=== PATIENT | female | born 2000 | race Asian ===

== ENCOUNTER 2022-06-11 13:15 | Inpatient (IN) ==
--- NOTE | 2022-06-11 14:02 | Emergency Department Note ---
Impression & Plan Suicidal ideation, COVID-19 ED Provider Note NAME: ROSIE CRUM AGE: 21 SEX: F : 2000 ARRIVES VIA: Walk-In INFORMANT: Patient ED PROVIDER(S): Trevor Escobedo DO CHIEF COMPLAINT: Suicide attempt HPI: Patient is a 19-year-old female who presents to the ER sent in by [facility]. Per [facility] on Wednesday attempted to hang herself and was talking about overdosing or cutting herself. Patient notes that she went to the bar had 2 drinks a night and did time not in the closet with a rope and with the intention of killing herself. She denies any auditory visual hallucinations. She notes that her boyfriend did stop her and she thought that he was going to stop her. Denies any belly pain nausea vomiting or diarrhea. She feels hopeless here and does not feel like she has any support as she is from [facility]. 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 She is depressed that she is not going to use this after she gets out. She feels like she is letting her family down. PAST MEDICAL HISTORY:See Below PAST SURGICAL HISTORY:See Below FAMILY HISTORY:See Below SOCIAL HISTORY:See Below HOME MEDICATIONS:See Below ALLERGIES:See Below VITALS:See Below PHYSICAL EXAMINATION: GENERAL: Sitting up in bed, alert, well appearing, well nourished, no distress, non-toxic EYE EXAM: normal conjunctiva. OROPHARYNX: no exudate, no erythema, lips, buccal mucosa, and tongue normal and mucous membranes are moist NECK: supple, no nuchal rigidity, no adenopathy, non-tender LUNGS: Clear to auscultation. Normal chest wall mechanics HEART: no murmurs, S1 normal and S2 normal ABDOMEN: abdomen soft, non-tender, normo-active bowel sounds, no masses, no rebound or guarding. BACK: Back is symmetrical on inspection and there is no deformity, no midline tenderness, no CVA tenderness. SKIN: no rashes and no bruising UPPER EXTREMITIES: upper extremities are grossly normal. LOWER EXTREMITIES: No pitting edema. NEURO EXAM: Normal sensorium, cranial nerves II-XII grossly intact, normal speech, no gross weakness of arms, no gross weakness of legs. PSYCH: Admits to trying to hang herself on Wednesday. Currently denies any suicidal homicidal ideations. No auditory visual hallucinations. MEDICAL DECISION MAKING: Patient is a 21-year-old female who presents the ER for decide attempt on Wednesday. IV was established blood was obtained. Labs show no significant le ukocytosis or anemia. BMP with a chloride of 109. LFTs bilirubin was unremarkable. TSH was normal. UA was clean. was negative. Tox was negative. Alcohol was positive. Patient is a high risk as she was tying a rope in her closet to kill her self and has thought of multiple other ways to kill her self on Wednesday. She was agreeable to come in will be admitted to the hospitalist service and will be evaluated by psychiatry due to the COVID- positive. External records were reviewed from the report from With memory care program director. Did discuss with herminia hilton hospitalist in regards to admission and further evaluation. Triage Nursing notes reviewed. Limited review of prior medical records performed Vital Signs: reviewed and remarkable for tachy Differential diagnosis: Mood disorder, infection, hypoglycemia, electrolyte abnormalities, cardiac sources, intracerebral event, toxicologic, trauma, neurologic, as well as other pathologies. ER treatment provided: See below Diagnostics interpreted by me include EKG and cardiac monitoring as listed below: -Laboratory studies:Interpreted by me as stated above in MDM and shown below. Imaging studies: Xrays: As interpreted by me:none CTs show: none Consultation(s): Discussed with care managers as described above. Discussed with her psychiatric memory care program director who evaluate the patient as above. Discussed with herminia medeiros from the hospital service for admission and further work- up. Procedures:none Critical Care: None Past Med/Surg History Social History Smoking Status: Current every day smoker Do You Dip or Chew Tobacco: No; Tobacco Cessation Education Requested by Patient: No Hx Alcohol Use: Yes Alcohol type: beer and hard liquor Hx Substance Use: No Preferred Language: Burkin[place] Required: No Beliefs That Will Affect Care: None Current Living Situation: Other Current Living Situation Comment: roommates Other Information That Helps Us Care for You: No Feels Safe at Home: Yes Safety Concerns: Feels Safe At This Time Assistive Devices: Glasses Allergies Allergies Allergy/AdvReac Type Severity Reaction Status Date / Time No Known Drug Allergies Allergy Verified 06/11/22 16:47 Home Meds Home Medications Medication Instructions Recorded Confirmed No Known Home Medications 06/11/22 06/11/22 Results & Data (ED) Vital Signs Vital Signs - 24 hr 06/11/22 13:20 06/11/22 15:21 Temperature 36.7 C Temperature Source Temporal Artery Scan Pulse Rate 112 H Pulse Rate [Apical] 82 Respiratory Rate 18 18 Respiratory Effort / Characteristics Non-Labored Respiratory Depth Normal Blood Pressure 120/84 Blood Pressure [Right Arm] 117/83 Blood Pressure Mean 96 Blood Pressure Mean [Right Arm] 94 Pulse Oximetry 97 100 Oxygen Delivery Method Room Air Room Air Sepsis Recent Fever Within 48 Hours No Sepsis New/Unexplained Change in Mental Status No Sepsis Action Taken by Nursing No Action Required Laboratory Data 06/11/22 14:17 06/11/22 14:17 Lab Results 06/11/22 06/11/22 06/11/22 Range/Units 14:17 14:17 14:17 WBC 7.91 (4.8-10.8) K/ul RBC 5.26 (4.20-5.40) M/uL Hgb 12.9 (12.0-16.0) g/dl Hct 40.3 (37.0-47.0) % MCV 76.6 L (80.0-100.0) fL MCH 24.5 L (25.0-34.0) pg MCHC 32.0 (32.0-36.0) g/dL RDW Std Deviation 40.8 (36.4-46.3) fL RDW Coeff of Kraan 14.6 H (11.5-14.5) % Plt Count 390 (130-400) K/uL MPV 10.0 (9.4-12.4) fL Immature Gran % (Auto) 0.5 % Neut % (Auto) 62.1 % Lymph % (Auto) 30.5 % [place] % (Auto) 4.8 % Eos % (Auto) 1.3 % Baso % (Auto) 0.8 % Neut # (Auto) 4.92 (1.40-6.50) K/uL Lymph # (Auto) 2.41 (1.2-3.4) K/uL [place] # (Auto) 0.38 (0.11-0.59) K/uL Eos # (Auto) 0.10 (0-0.50) K/uL Baso # (Auto) 0.06 (0-0.2) K/uL Immature Gran # (Auto) 0.04 (0.01-0.20) K/uL Sodium 139 (136-145) mmol/L Potassium 4.1 (3.5-5.1) mmol/L Chloride 109 H (98-107) mmol/L Carbon Dioxide 23 (21-32) mmol/L Anion Gap 7 (3-11) BUN 15 (6-23) mg/dl Creatinine 0.87 (0.6-1.2) mg/dl Est Cr Clr Drug Dosing 125.3 ml/min Est GFR ( Amer) 109.6 ml/min Est GFR (Non-Af Amer) 94.6 ml/min BUN/Creatinine Ratio 17.2 (10-20) Glucose 101 H (70-99(Fasting)) mg/dl Calcium 9.7 (8.5-10.1) mg/dl Total Bilirubin 0.4 (0.2-1.0) mg/dl AST 16 (13-39) U/L ALT 17 (7-52) U/L Alkaline Phosphatase 92 (34-104) U/L Total Protein 7.5 (6.0-8.3) gm/dl Albumin 4.5 (3.4-5.0) gm/dl Globulin 3.0 (2.5-4.0) gm/dl Albumin/Globulin Ratio 1.5 (0.9-2) TSH 2.646 (0.300-4.500) uIu/ml Urine Color Urine Appearance (Clear) Urine pH (4.5-7.5) Ur Specific [place] (1.000-1.030) Urine Protein (Negative) Urine Glucose (UA) (Negative) Urine Ketones (Negative) Urine Blood (Negative) Urine Nitrite (Negative) Urine Bilirubin (Negative) Urine Urobilinogen (Negative) Ur Leukocyte Esterase (Negative) Urine Test (Negative) Salicylates (3.0-30) mg/dl Urine Opiates Screen (Neg) Ur Methadone, Qual (Neg) Acetaminophen (10-30) ug/ml Urine Barbiturates (Neg) Ur Phencyclidine (PCP) (Neg) U Amphetamin/Meth Scrn (Neg) MDMA (Ecstasy) Screen (Neg) U Benzodiazepines Scrn (Neg) Ur Cocaine Metabolite (Neg) U Marijuana (THC) Screen (Neg) Ethyl Alcohol mg/dL (<10.0) mg/dl SARS-CoV-2, RNA, NAAT (NEGATIVE) 06/11/22 06/11/22 06/11/22 Range/Units 14:17 14:17 14:20 WBC (4.8-10.8) K/ul RBC (4.20-5.40) M/uL Hgb (12.0-16.0) g/dl Hct (37.0-47.0) % MCV (80.0-100.0) fL MCH (25.0-34.0) pg MCHC (32.0-36.0) g/dL RDW Std Deviation (36.4-46.3) fL RDW Coeff of Karan (11.5-14.5) % Plt Count (130-400) K/uL MPV (9.4-12.4) fL Immature Gran % (Auto) % Neut % (Auto) % Lymph % (Auto) % [place] % (Auto) % Eos % (Auto) % Baso % (Auto) % Neut # (Auto) (1.40-6.50) K/uL Lymph # (Auto) (1.2-3.4) K/uL [place] # (Auto) (0.11-0.59) K/uL Eos # (Auto) (0-0.50) K/uL Baso # (Auto) (0-0.2) K/uL Immature Gran # (Auto) (0.01-0.20) K/uL Sodium (136-145) mmol/L Potassium (3.5-5.1) mmol/L Chloride (98-107) mmol/L Carbon Dioxide (21-32) mmol/L Anion Gap (3-11) BUN (6-23) mg/dl Creatinine (0.6-1.2) mg/dl Est Cr Clr Drug Dosing ml/min Est GFR ( Amer) ml/min Est GFR (Non-Af Amer) ml/min BUN/Creatinine Ratio (10-20) Glucose (70-99(Fasting)) mg/dl Calcium (8.5-10.1) mg/dl Total Bilirubin (0.2-1.0) mg/dl AST (13-39) U/L ALT (7-52) U/L Alkaline Phosphatase (34-104) U/L Total Protein (6.0-8.3) gm/dl Albumin (3.4-5.0) gm/dl Globulin (2.5-4.0) gm/dl Albumin/Globulin Ratio (0.9-2) TSH (0.300-4.500) uIu/ml Urine Color Urine Appearance (Clear) Urine pH (4.5-7.5) Ur Specific [place] (1.000-1.030) Urine Protein (Negative) Urine Glucose (UA) (Negative) Urine Ketones (Negative) Urine Blood (Negative) Urine Nitrite (Negative) Urine Bilirubin (Negative) Urine Urobilinogen (Negative) Ur Leukocyte Esterase (Negative) Urine Test (Negative) Salicylates < 3.0 L (3.0-30) mg/dl Urine Opiates Screen (Neg) Ur Methadone, Qual (Neg) Acetaminophen < 3 L (10-30) ug/ml Urine Barbiturates (Neg) Ur Phencyclidine (PCP) (Neg) U Amphetamin/Meth Scrn (Neg) MDMA (Ecstasy) Screen (Neg) U Benzodiazepines Scrn (Neg) Ur Cocaine Metabolite (Neg) U Marijuana (THC) Screen (Neg) Ethyl Alcohol mg/dL < 10.0 (<10.0) mg/dl SARS-CoV-2, RNA, NAAT POSITIVE A* (NEGATIVE) 06/11/22 06/11/22 06/11/22 Range/Units 15:25 15:25 15:25 WBC (4.8-10.8) K/ul RBC (4.20-5.40) M/uL Hgb (12.0-16.0) g/dl Hct (37.0-47.0) % MCV (80.0-100.0) fL MCH (25.0-34.0) pg MCHC (32.0-36.0) g/dL RDW Std Deviation (36.4-46.3) fL RDW Coeff of Karan (11.5-14.5) % Plt Count (130-400) K/uL MPV (9.4-12.4) fL Immature Gran % (Auto) % Neut % (Auto) % Lymph % (Auto) % [place] % (Auto) % Eos % (Auto) % Baso % (Auto) % Neut # (Auto) (1.40-6.50) K/uL Lymph # (Auto) (1.2-3.4) K/uL [place] # (Auto) (0.11-0.59) K/uL Eos # (Auto) (0-0.50) K/uL Baso # (Auto) (0-0.2) K/uL Immature Gran # (Auto) (0.01-0.20) K/uL Sodium (136-145) mmol/L Potassium (3.5-5.1) mmol/L Chloride (98-107) mmol/L Carbon Dioxide (21-32) mmol/L Anion Gap (3-11) BUN (6-23) mg/dl Creatinine (0.6-1.2) mg/dl Est Cr Clr Drug Dosing ml/min Est GFR ( Amer) ml/min Est GFR (Non-Af Amer) ml/min BUN/Creatinine Ratio (10-20) Glucose (70-99(Fasting)) mg/dl Calcium (8.5-10.1) mg/dl Total Bilirubin (0.2-1.0) mg/dl AST (13-39) U/L ALT (7-52) U/L Alkaline Phosphatase (34-104) U/L Total Protein (6.0-8.3) gm/dl Albumin (3.4-5.0) gm/dl Globulin (2.5-4.0) gm/dl Albumin/Globulin Ratio (0.9-2) TSH (0.300-4.500) uIu/ml Urine Color Yellow Urine Appearance Clear (Clear) Urine pH 7.5 (4.5-7.5) Ur Specific [place] 1.010 (1.000-1.030) Urine Protein Negative (Negative) Urine Glucose (UA) Negative (Negative) Urine Ketones Negative (Negative) Urine Blood Negative (Negative) Urine Nitrite Negative (Negative) Urine Bilirubin Negative (Negative) Urine Urobilinogen Negative (Negative) Ur Leukocyte Esterase Negative (Negative) Urine Test Negative (Negative) Salicylates (3.0-30) mg/dl Urine Opiates Screen Neg (Neg) Ur Methadone, Qual Neg (Neg) Acetaminophen (10-30) ug/ml Urine Barbiturates Neg (Neg) Ur Phencyclidine (PCP) Neg (Neg) U Amphetamin/Meth Scrn Neg (Neg) MDMA (Ecstasy) Screen Neg (Neg) U Benzodiazepines Scrn Neg (Neg) Ur Cocaine Metabolite Neg (Neg) U Marijuana (THC) Screen Neg (Neg) Ethyl Alcohol mg/dL (<10.0) mg/dl SARS-CoV-2, RNA, NAAT (NEGATIVE) Discharge Plan Visit Data Chief Complaint: Mental Health Evaluation Stated Complaint: MENTAL HEALTH EVAL, REF FROM [facility] ED Provider: Trevor Escobedo Discharge Problem: Suicidal ideation, COVID-19 Patient Disposition: Admitted As Inpatient Discharge Instructions Interventions: ED Discharge Assessment Last Done: 06/11/22 19:38
[2022-06-11 14:32] LABS: Basophils # (auto) 0.06 K/uL (0-0.2); Basophils % (auto) 0.8 %; Eosinophils % (auto) 1.3 %; Hematocrit (blood only) 40.3 % (37.0-47.0); Hemoglobin 12.9 g/dl (12.0-16.0); Immature Granulocytes # (auto) 0.04 K/uL (0.01-0.20); Immature Granulocytes % (auto) 0.5 %; Lymphocytes # (auto) 2.41 K/uL (1.2-3.4); Lymphocytes % (auto) 30.5 %; Mean Corpuscular Hemoglobin 24.5 pg (25.0-34.0); Mean Corpuscular Volume 76.6 fL (80.0-100.0); Monocytes # (auto) 0.38 K/uL (0.11-0.59); Monocytes % (auto) 4.8 %; Neutrophils # (auto) 4.92 K/uL (1.40-6.50); Neutrophils % (auto) 62.1 %; Platelet Count 390 K/uL (130-400); RDW Coefficient of Variation 14.6 % (11.5-14.5); RDW Standard Deviation 40.8 fL (36.4-46.3); Red Blood Count 5.26 M/uL (4.20-5.40); White Blood Count 7.91 K/ul (4.8-10.8)
[2022-06-11 14:53] LABS: Acetaminophen < 3 ug/ml (10-30); Salicylate < 3.0 mg/dl (3.0-30)
[2022-06-11 14:57] LABS: Albumin Globulin Ratio 1.5 (0.9-2); Albumin Level 4.5 gm/dl (3.4-5.0); BUN Creatinine Ratio 17.2 (10-20); Bilirubin,Total 0.4 mg/dl (0.2-1.0); Calcium 9.7 mg/dl (8.5-10.1); Creatinine Clr Calc Pharmacy 125.3 ml/min; Est GFR (African American) 109.6 ml/min; Est GFR (Non-African American) 94.6 ml/min; Potassium 4.1 mmol/L (3.5-5.1); Total Protein 7.5 gm/dl (6.0-8.3)
[2022-06-11 15:45] LABS: Appearance Urine Clear (Clear); Bilirubin Urine Negative (Negative); Blood Urine Negative (Negative); Color Urine Yellow; Glucose Urine UA Negative (Negative); Ketones Urine Negative (Negative); Leukocyte Esterase Urine Negative (Negative); Nitrite Urine Negative (Negative); Protein Urine Negative (Negative); Urobilinogen Urine Negative (Negative); pH Urine 7.5 (4.5-7.5)
[2022-06-11 15:48] LABS: Pregnancy Test, Urine Negative (Negative)
[2022-06-11 16:25] LABS: Amphetamines+Metham, Urine Neg (Neg); Barbiturates, Urine Neg (Neg); Benzodiazepine, Urine Neg (Neg); Cocaine, Urine Neg (Neg); MDMA (Ecstacy), Urine Neg (Neg); Methadone, Urine Neg (Neg); Opiate, Urine Neg (Neg); Phencyclidine, Urine Neg (Neg)
--- NOTE | 2022-06-11 16:35 | History & Physical Report ---
Date of Service June 11, 2022 Assessment & Plan (1) Suicidal ideation: Plan: - Patient with suicidal ideation and attempt - Although intoxicated at the time, still will consider intentional attempt - Suicide precautions/checks, safe tray - 1:1 - Consult psychiatry (2) COVID-19: Plan: - Incidentally tested positive but is asymptomatic - Does not require treatment with antivirals, steroids - Negative pressure isolation Plan Above plan of care d/w Dr. Cifuentes who has also seen and evaluated this patient. Further orders as warranted. History of Present Illness Chief Complaint: suicidal ideation/attempt Primary Care Provider: [facility] Meeta is a 21 yo WF with no pertinent past medical history and takes no medication who presented to the ER today due to attempted suicide which occurred on 06/09. Patient notes that she has been dealing with several "personal issues" and it has been causing her to miss her college classes, her grades are suffering as a result, she feels that she is subsequently letting her parents down and all of this made her overwhelmed and she attempted suicide by wrapping a rope around her neck while intoxicated at her boyfriend's apartment Karen evening. She states that she "never planned on following through with it." She has never attempted suicide prior to this. She discussed with a friend who recommended seeking out counseling. At that recommendation, patient made an appointment with caps today and after she told them of the incident, the police were summoned and she was transported to the ER for evaluation. She denies a history of depression or anxiety in the past and has never taken medication for such. She has never seen a psychiatrist or a counselor. She incidentally tested positive for COVID-19 in the ER. She has been vaccinated but not boosted. She has no known ill contacts. She denies cough, shortness of breath, fever/chills, n/v. Allergies Allergy/AdvReac Type Severity Reaction Status Date / Time No Known Drug Allergies Allergy Verified 06/11/22 16:47 Home Medications Medication Instructions Recorded Confirmed Type No Known Home Medications 06/11/22 06/11/22 History Past Med/Surg History Social History Smoking Status: Current every day smoker Do You Dip or Chew Tobacco: No; Tobacco Cessation Education Requested by Patient: No Hx Alcohol Use: Yes Alcohol type: beer and hard liquor Hx Substance Use: No Preferred Language: Finnish [place] [employer]ger Required: No Beliefs That Will Affect Care: None Current Living Situation: Other Current Living Situation Comment: roommates Other Information That Helps Us Care for You: No Feels Safe at Home: Yes Safety Concerns: Feels Safe At This Time Assistive Devices: Glasses Review of Systems Review of Systems: All systems reviewed and are unremarkable except as noted in HPI and below. Denies fever, chills, fatigue, headache, nasal congestion, cough, chest pain, shortness of breath, palpitations, orthopnea, PND, abdominal pain, n/v/d, constipation, dysuria, hematuria, frequency, back pain, joint pain or swelling, easy bruising or bleeding, skin lesions or rashes. Physical Exam Physical Exam: GENERAL: 21 yo Well-developed, well-nourished F. NAD. EYES: EOMI. PERRLA. Anicteric. HENT: Moist mucous membranes. No scleral icterus. No cervical lymphadenopathy. LUNGS: Clear to auscultation bilaterally. No accessory muscle use. No W/R/R. CARDIOVASCULAR: Regular rate and rhythm. No M/G/R. No JVD. ABDOMEN: Soft, non-tender and non-distended. No palpable masses. Bs normoactive x 4 quad. EXTREMITIES: No edema. Non-tender. Peripheral pulses +2/4. NEUROLOGIC: A&O x3. No focal neurological deficits. CN II-XII grossly intact. PSYCHIATRIC: Cooperative. Appropriate mood and affect. SKIN: Warm, dry, intact. No rashes or lesions. Results & Data Results & Data ([facility]) Vital Signs (Past 12 Hours) Vital Signs Temp Pulse Pulse Resp BP BP Pulse Ox 06/11/22 15:21 82 18 117/83 100 06/11/22 13:20 36.7 C 112 H 18 120/84 97 O2 Del Method 06/11/22 15:21 Room Air 06/11/22 13:20 Room Air Laboratory Results 06/11/22 14:17 06/11/22 14:17 Supervising Physician Co-Signing Physician Notes Patient seen and examined, chart reviewed, case discussed with Renata Norton PA-C and I agree with the assessment and plan as above except as otherwise noted Labs and images reviewed 21-year-old female with no past medical history who presented with depression and suicidal ideation, was pending U evaluation but consistently tested po sitive for COVID and is admitted for medical evaluation of COVID. Reports that she wrapped a rope around her neck while intoxicated because she was feeling down, but did not intend to actually follow through with self-harm. Denies SI/HI at bedside. Lungs are clear. Not short of breath or hypoxic, is not requiring room air. Agree with management above, continue one-to-one. No COVID treatments indicated at this time. PG Care Time/CCT Total # of Minutes Spent Total Time Spent with Patient: Total time spent is greater than 50% in coordination of care (as documented) at patient's floor/unit and/or counseling patient: Coding Level of Care Code 11273 INT INP/OBS CARE 2/55MIN Diagnoses Suicidal ideation R45.851 COVID-19 U07.1
[2022-06-11] MEDS ORDERED: ALUMINUM/MAGNESIUM SUSP 30 ML UDC PO PRN (19:02)
[2022-06-11] MEDS ORDERED: ACETAMINOPHEN 325 MG TAB PO PRN (19:02)
[2022-06-11] MEDS ORDERED: MAGNESIUM HYDROXIDE SUSP 30 ML UDC PO PRN (19:02)
[2022-06-11] MEDS: NICOTINE 14 MG/24 HR PATCH TD SCH (21:42)
[2022-06-11] MEDS ORDERED: MELATONIN 3 MG TAB PO PRN (22:08)
[2022-06-11] MEDS ORDERED: MELATONIN 3 MG TAB PO ONE (22:30)
[2022-06-12] MEDS: NICOTINE 14 MG/24 HR PATCH TD SCH (12:06)
--- NOTE | 2022-06-12 13:28 | Psychiatric Consultation ---
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 Diagnostically consistent with major depressive disorder with anxious distress and likely RAMOS per history, possible cluster B traits but no history of self-harm or chronic SI which makes this less likely. Acute risk of self-harm remains elevated and moderate given interrupted suicide attempt versus rehearsal behaviors, major depressive symptoms, impulsivity, and lack of outpatient services. Given elevated risk of harm to self they meet criteria for inpatient psychiatric care for diagnostic clarification, safety/stabilization, development of additional coping skills, medication management and disposition/safety planning but will remain on the medical service given COVID+ status with psychiatry consultation following closely. If she attempts to leave she would meet criteria for 302 warrant given elevated risk of self-harm and ongoing modifiable risk factors. Met with Meeta via telehealth due to her COVID + status. Meeting included interdisciplinary behavioral health team including social work and psychiatric liason RN. Discussed medication treatment options in detail including SSRI, SNRI, Wellbutrin. Discussed risks, benefits and alternatives. Patient declines starting any medication, prefers to start with psychotherapy to address her depression. Overall, I spent a total of 60 minutes with this case including review of chart records, review of labwork, evaluation of the patient via telehealth visit, counseling the patient, discussion of the patient with the hospitalist provider, discussion with the psychiatric liason and social workers during clinical rounds, evaluation of safety and documentation in the electronic health record. (1) Major depressive disorder with current active episode: (2) RAMOS (generalized anxiety disorder): (3) Suicidal ideation: Plan -Continue 1-on-1 for risk of harm to self -Do not discharge or allow to leave AMA -prefers to start by trying therapy declines starting medication at this time -will be provided with mental health workbook and encouraged to work on safety plan -agreed to outpatient referrals for therapy and PCP Telehealth Telehealth Options: Telephone only For the duration of the visit, provider was performing the assessment from: The same facility as the patient After establishing a telemedicine visit, patient was: Patient was verified with two unique identifiers, Patient/authorized rep acknowledged consent and understanding and Gave permission to continue telehealth session Total Time Spent (minutes): 45 Psych History Identifying Data 21 yo woman and 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 admitted medically due to COVID+ status after presented for an interrupted suicide attempt. Ps ychiatry was consulted for recommendations and management. Chief Complaint "I've been more down". History of Present Illness Meeta is a 19 yo woman admitted following an interrupted suicide attempt. Since early May she has been more depressed with anhedonia, decreased motivation, increased sleep about 10 hours per night, lower energy, more difficulty concentrating on school, social isolation and periods of hopelessness and self- guilt. She's been struggling more academically and started missing classes and feels guilty that she's spending time and money on school and might not be able to finish on time. She also has been isolating herself from some friends and hasn't been finding lowell from dancing or painting lately. Appetite has been stable. On Wednesday she was with her boyfriend and everything was fine but after classes she went to the bar and had two beers with a friend. They were talking and she described her worsening mood and "I got drunk and I got sad" so then once at home she went to her boyfriends. She recalls crying and suddenly had thoughts of self-harm/suicide and impulsively tried to hurt herself by trying to get a knife but her boyfriend took this away, then she tried to swallow about 15 tabs of ibuprofen but her boyfriend made her spit these out before she ingested anything and then she tried to get a rope but "I don't even know what to do with it so I tied it in the closet and tried to put it around my neck" but then her boyfriend took it off her neck and then they went to sleep. On Wednesday she woke up, was sober, felt better, had no more SI and watched movies with her boyfriend. She decided to reach out to [facility] to consider starting therapy to help with her depression "and then I was sent here". In reflecting back she notes "I think that day because of the alcohol I just felt really bad sadness about everything". She notes this happens from time to time but that night she started to tell herself she was weak and felt sad. "I don't think I would actually do something I just wanted someone to stop me and tell me that everything will be fine". She denies any hopelessness since Wednesday night when her attempts were interrupted. When asked if she tried to hurt herself as a suicide attempt she says "not really, I just made a scene". Currently feels ashamed of "what I did and tried to, it was a very impulsive thing and I think I should not drink". Denies SI or self-harm thoughts currently. Has been getting a lot of support from friends via texting and calling since being in the hospital. She had SI two years ago during a stressful event at work but no other periods of SI and has never attempted suicide. Further recent history reviewed and confirmed per ED psych CM note from 06/11/2022: "Prior to patient's arrival in the ER, ED CM received call from Tricia at [facility]. Tricia reports patient called her today reporting that a few days ago she had several suicide attempts while drinking. Patient reported to Tricia that she attempted to hang herself, overdose on pain killers, and by using a knife. Patient's boyfriend stopped her. Patient reported vague suicidal thoughts to Tricia today, but would not elaborate on thoughts. 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 [facility]. Her only support is her boyfriend who "feels mental health is stupid." Tricia called patient's boyfriend today, and he seemed annoyed that she was coming to the ER. He is currently out of town working. Tricia reports that patient is coming to ER voluntarily, but is not seeking inpatient MH treatment." Her parents are physicians in [facility]. 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 She lives in [place] with a fellow law student and his family. She has three younger brothers. She will drink alcohol sometimes-usually 2 beers, over the last month went out twice drinking with friends. No other substance use. She plans to return to [employer] [facility] after she graduates. She has a boyfriend who she feels is supportive. Psychiatric ROS notable for no current or past symptoms of adelfo nor psychosis nor self-harm. Sometimes she overeats to cope with emotions but never purges. As a teenager she purged a few times. She worries a lot about the future and endorses symptoms of anxiety. Past Psychiatric History Previous Psych History: no formal psych history Outpatient Services: none, yesterday spoke with someone from [facility] Previous Psych Admissions: none Do You Have Access To A Gun?: No History of Previous Suicide Attempt: No Past Medication Trials: none Allergies Allergy/AdvReac Type Severity Reaction Status Date / Time No Known Drug Allergies Allergy Verified 06/11/22 16:47 Home Medications Medication Instructions Recorded Confirmed Type No Known Home Medications 06/11/22 06/11/22 History Patient History Social History Smoking Status: Current every day smoker Do You Dip or Chew Tobacco: No; Tobacco Cessation Education Requested by Patient: No Hx Alcohol Use: Yes Alcohol type: beer and hard liquor Hx Substance Use: No Preferred Language: Yakut Communication Ability: Effective Electronics Assembler And Tester Required: No Beliefs That Will Affect Care: None Current Living Situation: Other Current Living Situation Comment: roommates Other Information That Helps Us Care for You: No Feels Safe at Home: Yes Safety Concerns: Feels Safe At This Time Assistive Devices: None Physical Exam Psychiatric: Orientation: alert and oriented x 3 Speech: normal rate/rhythm/volume of speech Mood: + depressed mood and + anxious mood Thought Process: + circumstantial thought process Thought Content: reality based without delusions Suicidal Thoughts: denies suicidal thoughts (but interrupted attempt prior to admission) Homicidal Thoughts: denies homicidal thoughts Hallucinations: no auditory hallucinations and no visual hallucinations Cognition: recent memory grossly intact and remote memory grossly intact Insight: + limited insight Judgment: + fair judgement Vital Signs (Past 24 Hours): Last Vital Signs Temp 36.8 C 06/11/22 22:08 Pulse 71 06/11/22 22:08 Resp 16 06/11/22 22:08 BP 98/63 L 06/11/22 22:08 Pulse Ox 100 06/11/22 22:08 O2 Del Method 06/11/22 22:08 Review of Systems All systems reviewed & are unremarkable except as noted in HPI & below Results & Data ([facility]) Laboratory Results Na+ normal, negative salicylates and negative acetaminophen, UDS negative Medications Administered Miscellaneous (Remove Nicoderm Patch) 1 each N/A DAILY@0859 BRIAN Stop: 07/12/22 08:58 Last Admin: 06/12/22 12:06 Dose: 1 each Documented By: KIRA Nicotine (Nicotine 14 Mg/24 Hr Patch) 14 mg TD QAM BRIAN Stop: 07/11/22 19:01 Last Admin: 06/12/22 12:06 Dose: 14 mg Documented By: Admin: 06/11/22 21:42 Dose: 14 mg Documented By: SOPHIE Coding Level of Care Code INP/OBS CONSULT LVL 4, 60 MIN Diagnoses Major depressive disorder with current active episode F32.9 RAMOS (generalized anxiety disorder) F41.1 Suicidal ideation R45.851 Time Spent (min) 60
--- NOTE | 2022-06-12 16:23 | Hospitalist Progress Note ---
Date of Service June 12, 2022 Assessment & Plan (1) Suicidal ideation: Plan: - Patient with suicidal ideation and attempt - Although intoxicated at the time, still will consider intentional attempt - Suicide precautions/checks, safe tray - Maintain 1:1 - Consulted psych, appreciate input * Pt declined antidepressant medication, will arrange for outpatient follow up * Of note, she is NOT currently on a 302 warrant per psych documentation but would meet if she would attempt to leave * Possible dc tomorrow if she continues to do well (2) COVID-19: Plan: - Incidentally tested positive but is asymptomatic - Does not require treatment with antivirals, steroids - Negative pressure isolation Plan Plan as outlined above. No need for repeat labs. Above plan of care d/w Dr. Goncalves. Admission and Anticipated Discharge Date Admission Date: June 11, 2022 Subjective Patient seen on daily rounds this morning. She is resting comfortably in bed and has no complaints. Feels less depressed/anxious today. Continues to deny dyspnea, cough, fever/chills. Physical Exam Physical Exam: GENERAL: 21 yo Well-developed, well-nourished F. NAD. LUNGS: Clear to auscultation bilaterally. No W/R/R. CARDIOVASCULAR: Regular rate and rhythm. PSYCHIATRIC: Cooperative. Appropriate mood and affect. Results & Data Results & Data ([facility]) Vital Signs (Past 12 Hours) Vital Signs Temp Pulse Resp BP Pulse Ox O2 Del Method 06/12/22 14:57 36.5 C 92 H 18 107/75 99 Room Air PG Care Time/CCT Total # of Minutes Spent Total Time Spent with Patient: Total time spent is greater than 50% in coordination of care (as documented) at patient's floor/unit and/or counseling patient: Coding Level of Care Code 59690 SUB INP/OBS CARE 2/35MIN Diagnoses Suicidal ideation R45.851 COVID-19 U07.1
[2022-06-13] MEDS: NICOTINE 14 MG/24 HR PATCH TD SCH (09:58)
--- NOTE | 2022-06-13 15:12 | Psychiatric Progress Note ---
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 Diagnostically consistent with unspecified depression differential includes major depressive disorder with anxious distress versus adjustment disorder with mixed anxious and depressed mood. 06/13/2022: Today her mood has improved significantly, she continues to deny SI, is future-oriented, feels well supported by her friends and remains willing for outpatient psychotherapy. A support session was held with her friend and she has completed and reviewed her safety plan. She participated in discussion about safety planning and about ways to seek support and recognizing warning signs and utilizing coping skills. Reviewed importance of seeking emergency care should SI re-occur or should they feel unsafe in the future which they agree to do. Acute risk is low given improvement in mood and denial of SI, lack of access to lethal means, plan to avoid substance use, hopefulness. Chronic risk is low to moderate given non-modifiable risk factors: periods of impulsivity, prior attempt but also with protective factors including employed/student, good social support, sense of responsibility to family and social supports, outpatient care in place, positive coping skills, positive problem solving, capacity to establish therapeutic alliance, willingness to engage with treatment, capacity for self-observation. Counseled on ways to reduce acute and chronic risk including engaging with outpatient providers, using safety plan if needed, utilizing supports, taking medication, and using coping skills. Modifiable risk factors of SI and depression were addressed during hospitalization through support meeting, safety planning, and establishment of outpatient supports. (1) Major depressive disorder with current active episode: (2) RAMOS (generalized anxiety disorder): (3) Suicidal ideation: Plan -Acute risk of self-harm is now low, psychiatrically stable for discharge which she desires -Has outpatient therapy scheduled at [facility] -Has new PCP with appointment scheduled, in future if she desires medication (i.e. 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 Psychiatry was consulted for recommendations and management. Chief Complaint "I'm doing great". Review of Systems Notes slept well, eating well Telehealth Telehealth Options: Telephone only For the duration of the visit, provider was performing the assessment from: The same facility as the patient After establishing a telemedicine visit, patient was: Patient was verified with two unique identifiers, Patient/authorized rep acknowledged consent and understanding and Gave permission to continue telehealth session Total Time Spent (minutes): 25 Subjective Subjective Spoke with Meeta over the phone for telemedicine visit. Interval progress reviewed with treatment team nursing and social work. She feels her mood has improved and denies SI. Feels her suicidal thoughts and mood have improved because she's been talking to friends who "understand what I've been through and can relate" and she's found them to be very supportive. She is also looking forward to fun plans she's started making with friends such as plans to go skiing next week, attending her dance class, and getting back to classes. She identifies reasons for living including her "dreams and goals and my family". She's future oriented noting "I want to finish my degree, go back to my country and maybe get a PHD in [place]". She reflects "I just forgot about this for a couple days but I'm thinking about it again" and feels re-focused on her goals and ambitions. Physical Exam Psychiatric Orientation: alert and oriented x 3 Speech: normal rate/rhythm/volume of speech Mood: no depressed mood and no anxious mood Thought Process: goal directed thought process Thought Content: reality based without delusions Suicidal Thoughts: denies suicidal thoughts Homicidal Thoughts: denies homicidal thoughts Hallucinations: no auditory hallucinations and no visual hallucinations Cognition: recent memory grossly intact and remote memory grossly intact Insight: + fair insight Judgment: + fair judgement Vital Signs (Past 24 Hours) Last Vital Signs Temp 36.4 C L 06/13/22 09:13 Pulse 83 06/13/22 09:13 Resp 14 06/13/22 09:13 BP 113/74 06/13/22 09:13 Pulse Ox 96 06/13/22 09:13 O2 Del Method 06/13/22 09:13 Results & Data ([facility]) Current Inpatient Medications Current Inpatient Medications: Current Inpatient Medications Acetaminophen (Acetaminophen 325 Mg Tab) 650 mg PO Q4H PRN PRN Reason: pain/fever Stop: 07/11/22 19:01 Al Hydrox/Mg Hydrox/Simethicone (Aluminum/Magnesium Susp 30 Ml Udc) 30 ml PO Q6H PRN PRN Reason: Dyspepsia Stop: 07/11/22 19:01 Magnesium Hydroxide (Magnesium Hydroxide Susp 30 Ml Udc) 30 ml PO Q6H PRN PRN Reason: Constipation Stop: 07/11/22 19:01 Melatonin (Melatonin 3 Mg Tab) 3 mg PO HS PRN PRN Reason: Sleep Stop: 07/11/22 22:07 Miscellaneous (Remove Nicoderm Patch) 1 each N/A DAILY@0859 BRIAN Stop: 07/12/22 08:58 Last Admin: 06/13/22 09:58 Dose: 1 each Nicotine (Nicotine 14 Mg/24 Hr Patch) 14 mg TD QAM BRIAN Stop: 07/11/22 19:01 Last Admin: 06/13/22 09:58 Dose: Not Given Mental Health & Subst Abuse Tx Psychiatrist Name of Psychiatrist: None Therapist Name of Therapist: [facility]'s Date of Therapist Appointment: 06/26/2022 Time of Therapist Appointment: 9:30am Therapy Appointment Comment: [address], [address], [place] [address] Post Discharge Appointments Primary Care Physician Name Of Family Doctor/PCP: [facility] Date of Future Appointment with PCP: 06/29/2022 Time of Appointment with PCP: 12:50pm Provider Appointment Comment: [address] [place] [address] Contact Information Discharge Discharge Address: [address] [place] [address], [place] [address]
--- NOTE | 2022-06-13 16:30 | Discharge Summary ---
Date of Service June 13, 2022 Admission HPI Per Admitting Provider Meeta is a 21 yo WF with no pertinent past medical history and takes no medication who presented to the ER today due to attempted suicide which occurred on 06/09. Patient notes that she has been dealing with several "personal issues" and it has been causing her to miss her college classes, her grades are suffering as a result, she feels that she is subsequently letting her parents down and all of this made her overwhelmed and she attempted suicide by wrapping a rope around her neck while intoxicated at her boyfriend's apartment Wednesday evening. She states that she "never planned on following through with it." She has never attempted suicide prior to this. She discussed with a friend who recommended seeking out counseling. At that recommendation, patient made an appointment with [facility] today and after she told them of the incident, the police were summoned and she was transported to the ER for evaluation. She denies a history of depression or anxiety in the past and has never taken medication for such. She has never seen a psychiatrist or a counselor. She incidentally tested positive for COVID-19 in the ER. She has been vaccinated but not boosted. She has no known ill contacts. She denies cough, shortness of breath, fever/chills, n/v. Principal Diagnosis 1. Major depressive disorder 2. Generalized anxiety disorder 3. Suicidal ideation with attempt in remission Discharge Exam GENERAL: 21 yo Well-developed, well-nourished F. NAD. LUNGS: Clear to auscultation bilaterally. No W/R/R. CARDIOVASCULAR: Regular rate and rhythm. PSYCHIATRIC: Cooperative. Appropriate mood and affect. Discharge Data Allergies Allergy/AdvReac Type Severity Reaction Status Date / Time No Known Drug Allergies Allergy Verified 06/11/22 16:47 Consultations 06/11/22 15:51 ED Decision to Admit Stat 06/11/22 19:02 Consult Psychiatry Routine Hospital Course (1) Suicidal ideation: - Patient with suicidal ideation and attempt - Although intoxicated at the time, still will consider intentional attempt - Suicide precautions/checks, safe tray - Maintained 1:1 during her stay - Consulted psych, appreciate input * Pt declined antidepressant medication, will arrange for outpatient follow up * Of note, she is NOT currently on a 302 warrant per psych documentation but would meet if she would attempt to leave * She completed safety plan and support meeting with liaison and has been cleared for dc by psych (2) COVID-19: - Incidentally tested positive but is asymptomatic - Does not require treatment with antivirals, steroids - Was in negative pressure isolation during her stay - Follow cdc and [facility] guidelines for quarantining in a fully vaccinated patient (vaxx'd not boosted) Plan Medically and hemodynamically stable for discharge home today with close outpatient f/u with . Above plan of care has been d/w Dr. Goncalves who is in agreement with aforementioned. Total Time Total Time Spent Total Time Spent (In Minutes): >30 minutes Discharge Plan Discharge Items Patient Disposition: Home - Self-Care Reason For Visit: SUICIDAL IDEATION/ATTEMPT Discharge Diagnosis: Suicidal thoughts with attempt Major depression Activity: Resume your previous activity Non-emergency contact: Primary Care Provider and Psychiatrist Call non-emergency contact if: you have any medication questions and your symptoms worsen Follow-up/Referrals: [facility] [Primary Care Provider] - Diet: Regular Addtl Attending Provider Instructions: You were hospitalized due to having suicidal thoughts with a suicide attempt on Friday 06/09. Incidentally, during your time in the emergency department, you were tested for COVID-19 due to planned admission to behavioral health unit and tested positive. Fortunately, since you have had no symptoms, you did not meet any criteria to be treated for COVID-19. Since you are vaccinated, you can follow CDC and state health department guidelines regarding quarantine for a fully vaccinated individual. You were seen by psychiatry who felt that you were suffering from major depressive disorder as well as anxiety. Typically the treatment for this includes medications and counseling. However, you have declined medication and want to pursue counseling only. An outpatient appointment has been arranged for you as well as a PCP follow up. Please keep these appointments as scheduled. In the event that you change your mind regarding medications, you can discuss this with your primary care provider. If you have any questions or concerns following your discharge, you may contact the nonemergency number listed on your paperwork. In the event of a medical emergency, call 911. Pending Studies at Discharge: No Stand-Alone Forms: [employer], Smoking Cessation Medications and DC Order Prescriptions: No Action No Known Home Medications Discharge Orders: Discharge Order (Routine); Ordered 06/13/22 Ordered By: Agata Norton Admission Data Admit Date/Time: 06/11/22 16:31 Attending Provider: Avinash Goncalves Admit Provider: Mick Cifuentes Primary Care Provider: [facility] Other Providers: Mick Cifuentes ; Rosy Landry ; Audrey Hartman ; Leon Lundy Coding Level of Care Code HOSP INP/OBS DISCH >30 MIN Diagnoses Suicidal ideation R45.851 COVID-19 U07.1
== END 2022-06-13 17:19 | disposition home or self-care (01) | DRG 881 ==
LOC: ED 13:15 → EDINP 16:31 → SUATTDRO 16:31 → 3N 19:38